=== PATIENT | female | born 1945 | race Caucasian/White ===

== ENCOUNTER → 2016-03-03 12:17 | Outpatient (CLI) | payer MEDICARE, BC ==
[2014-05-12 19:40] VITALS: BMI 29.1
[~2016-03-03 12:17] MED LIST: ABILIFY10 MG PO; ABILIFY2 MG PO; AMBIEN10 MG PO; AMITRIPTYLINE100 MG PO; CATAPRES0.1 MG PO; EFFEXOR100 MG PO; HYDROCODONE-APA1 TAB PO; MOBIC7.5 MG PO; NEURONTIN 300300 MG PO; PAMELOR 25 MG C25 MG PO; PAMELOR10 MG PO; PRILOSEC10 MG PO; PRISTIQ50 MG PO; SOMA350 MG PO; SYNTHROID50 MCG PO; TENORMIN50 MG PO; XANAX1 MG PO; ZESTORETIC 20/21 TAB PO; ZIAC 5-6.25 MG1 TAB PO
--- NOTE | 2016-03-06 08:24 | EEG ---
PATIENT:GEMA RODRIGUEZ DATE OF SERVICE: 03/03/16 MEDICAL RECORD: [id number] DATE OF : 47 LOCATION: [facility] ADMISSION DATE: 03/03/16 REFERRING PHYSICIAN: INTERPRETING PHYSICIAN: BRIANNA LAROSE MD DATE OF SERVICE: 03/03/2016 REFERRING PHYSICIAN: Dr. Jones as an outpatient. ELECTROENCEPHALOGRAM NUMBER: [id number] DATE OF EXAMINATION: 03/03/2016 at 1:00 p.m. TECHNICAL DATA: This electroencephalographic recording consists of approximately 20 minutes of data collection utilizing the international 10/20 system of electrode placement and both referential and non-referential montages. Sixteen channels of electrocerebral recording are accompanied by a 17th channel dedicated to the electrocardiographic rhythm and to 2 channels of electromyographic recording. Recording is performed in the awake and drowsy states utilizing activation by photic stimulation. ELECTROENCEPHALOGRAPHIC DATA: The awake state comprises approximately 80% of the recorded electrocerebral activity. Electromyographic artifact is prominent and rapid eye movements are seen. The posterior dominant background consists of a symmetric semi-arrhythmic waxing and waning alpha activity of 7-8 Hz, which is suppressed by eye opening. The drowsy state comprises the remaining portion of the recorded electrocerebral activity. Electromyographic artifact is diminished and rapid eye movements are not seen. The posterior dominant background is relatively suppressed, when seen tends more towards 7 Hz. No abnormal or focal slowing is identified. No epileptiform discharges are seen. Hyperventilation and photic stimulation induced no abnormal change in the recorded electrocerebral activity. INTERPRETATION: 1. Normal (awake and drowsy). This is a normal electroencephalographic recording. TRANSINT:[id number] Voice Confirmation ID: [id number] DOCUMENT ID: [id number] BRIANNA LAROSE MD at 0824 CC: [id number] DICTATION DATE: 03/05/16 0749 SENIOR IOS SOFTWARE ENGINEER: 03/05/16 0816 [facility] CLI 03/03/16 [id number] [place] [address]
== END | disposition home or self-care (01) ==
LOC: D.MRI 02-21 10:00 → D.CN 02-21 13:00 → D.LAB 02-21 14:00 → D.MRI 02-21 14:30 → D.CN 12:17
DX: E03.8 Other specified hypothyroidism (principal); F32.0 Major depressive disorder, single episode, mild; R55 Syncope and collapse

== ENCOUNTER 2016-05-03 00:34 | Emergency (ER) | payer MEDICARE, BC ==
[2014-05-12 19:40] VITALS: BMI 29.1
== END 2016-05-03 04:06 | disposition home or self-care (01) ==
LOC: D.ER 00:34
DX: L03.115 Cellulitis of right lower limb (principal); M10.9 Gout, unspecified; J44.9 Chronic obstructive pulmonary disease, unspecified; F32.9 Major depressive disorder, single episode, unspecified; I10 Essential (primary) hypertension; E03.9 Hypothyroidism, unspecified; G47.00 Insomnia, unspecified; G47.30 Sleep apnea, unspecified

== ENCOUNTER → 2016-09-15 08:30 | Outpatient (CLI) | payer MEDICARE, BC ==
[2014-05-12 19:40] VITALS: BMI 29.1
[2016-09-15 09:19] LABS: BASOPHILS 0.2 % (0-2); EOSINOPHILS 1.7 % (0-7); HEMOGLOBIN 12.3 g/dL (12-16); IMMATURE GRANULOCYTES 0.2 % (0-5); MCH 29.6 pg (26.0-34.0); MCHC 32.4 g/dL (31.0-37.0); MCV 91.3 fL (80.0-100.0); MEAN PLATELET VOLUME 9.9 fL (7.4-10.4); MONOCYTES 8.4 % (2-11); NEUTROPHILS 48.5 % (40-80); RBC 4.16 10x6/uL (4.00-5.40); WBC 8.7 10x3/uL (4.8-10.8)
[2016-09-15 09:20] LABS: PLATELET COUNT 212 10x3/uL (130-400)
[2016-09-15 09:28] LABS: APTT 27.4 SECONDS (22.8-39.4); INR 0.99 (0.85-1.17)
[2016-09-15 09:37] LABS: ALBUMIN 3.6 g/dL (3.4-5.0); ANION GAP 12.4 mmol/L (8-16); BILIRUBIN - DIRECT 0.08 mg/dL (0.00-0.30); BILIRUBIN - INDIRECT 0.23 mg/dL (0.00-1.00); BILIRUBIN - TOTAL 0.31 mg/dL (0.2-1.3); CALCIUM 8.9 mg/dL (8.5-10.1); CARBON DIOXIDE 28.5 mmol/L (21.0-32.0); CREATININE - SERUM 1.4 mg/dL (0.6-1.3); POTASSIUM - SERUM 3.9 mmol/L (3.5-5.1); PROTEIN - SERUM 8.3 g/dL (6.4-8.2)
[2016-09-15 09:38] LABS: LDL-HDL RATIO 4.3 ratio (1.5-3.5)
[2016-09-15 10:04] LABS: % SATURATION 18 % (15-55); IRON 74 ug/dl (35-150); TOTAL IRON BIND CAPACITY 400 ug/dl (260-445); UNSAT IRON BIND CAPACITY 326 ug/dl (150-375)
[2016-09-16 10:17] LABS: FOLATE (FOLIC ACID) - SERUM >20.0 ng/mL (>3.0)
[2016-09-16 11:15] LABS: ANA REFLEX - DIRECT Negative (Negative)
[2016-09-16 12:16] LABS: HAPTOGLOBIN 193 mg/dL (34-200)
== END | disposition home or self-care (01) ==
LOC: D.US 09-10 09:00 → D.LAB 09-10 10:15
PROVIDERS: Internal Medicine Gastroenterology
DX: K76.0 Fatty (change of) liver, not elsewhere classified (principal)

== ENCOUNTER → 2016-11-06 16:45 | Outpatient (CLI) | payer MEDICARE, BC ==
[2014-05-12 19:40] VITALS: BMI 29.1
== END | disposition home or self-care (01) ==
LOC: D.CT 16:30
DX: R19.00 Intra-abdominal and pelvic swelling, mass and lump, unspecified site (principal)

== ENCOUNTER 2017-05-04 10:09 | Emergency (ER) | payer MEDICARE, BC ==
[2014-05-12 19:40] VITALS: BMI 29.1
[~2017-05-04 10:09] MED LIST changes: -SYNTHROID50 MCG PO; +SYNTHROID75 MCG PO
[2017-05-04 12:10] LABS: BASOPHILS 0.2 % (0-2); EOSINOPHILS 0.9 % (0-7); HEMATOCRIT 38.3 % (36.0-48.0); HEMOGLOBIN 12.4 g/dL (12-16); IMMATURE GRANULOCYTES 0.1 % (0-5); LYMPHOCYTES 36.5 % (15-50); MCH 28.8 pg (26.0-34.0); MCHC 32.4 g/dL (31.0-37.0); MCV 89.1 fL (80.0-100.0); MEAN PLATELET VOLUME 9.8 fL (7.4-10.4); MONOCYTES 6.1 % (2-11); NEUTROPHILS 56.2 % (40-80); PLATELET COUNT 212 10x3/uL (130-400); RDW 14.5 % (11.5-14.5); WBC 9.8 10x3/uL (4.8-10.8)
[2017-05-04 12:39] LABS: ALBUMIN 3.4 g/dL (3.4-5.0); ANION GAP 12.5 mmol/L (8-16); BILIRUBIN - TOTAL 0.32 mg/dL (0.2-1.3); CALCIUM 8.8 mg/dL (8.5-10.1); CARBON DIOXIDE 29.7 mmol/L (21.0-32.0); CREATININE - SERUM 1.2 mg/dL (0.6-1.3); POTASSIUM - SERUM 4.2 mmol/L (3.5-5.1); PROTEIN - SERUM 7.8 g/dL (6.4-8.2)
== END 2017-05-04 13:58 | disposition home or self-care (01) ==
LOC: D.ER 10:09
PROVIDERS: Physician Assistant
DX: S00.11XA Contusion of right eyelid and periocular area, initial encounter (principal); S80.01XA Contusion of right knee, initial encounter; W19.XXXA Unspecified fall, initial encounter; Y93.89 Activity, other specified; Y92.019 Unspecified place in single-family (private) house as the place of occurrence of the external cause; R00.1 Bradycardia, unspecified; Z91.81 History of falling

== ENCOUNTER → 2017-05-24 10:18 | Outpatient (CLI) | payer MEDICARE, BC ==
[2014-05-12 19:40] VITALS: BMI 29.1
[~2017-05-24 10:18] MED LIST changes: +EFFEXOR75 MG PO; +NEXIUM20 MG PO; +NORVASC2.5 MG PO; +PEPCID40 MG PO; +TRAZODONE HCL50 MG PO; +ZANAFLEX4 MG PO; +ZYLOPRIM100 MG PO
[2017-05-24 11:40] LABS: ALBUMIN 3.6 g/dL (3.4-5.0); BILIRUBIN - DIRECT 0.09 mg/dL (0.00-0.30); BILIRUBIN - INDIRECT 0.31 mg/dL (0.00-1.00); BILIRUBIN - TOTAL 0.4 mg/dL (0.2-1.3); PROTEIN - SERUM 8.3 g/dL (6.4-8.2)
== END | disposition home or self-care (01) ==
LOC: D.LAB 05-04 10:15 → D.US 05-04 10:30
PROVIDERS: Internal Medicine Gastroenterology
DX: K76.0 Fatty (change of) liver, not elsewhere classified (principal)

== ENCOUNTER 2017-06-28 11:26 | Day surgery (SDC) | payer MEDICARE, BC ==
[~2017-06-28] VITALS: Ht 165.1 cm; Wt 77.3 kg
--- NOTE | ~2017-06-28 | OP ---
PATIENT NAME: GEMA RODRIGUEZ MEDICAL RECORD: [id number] :47 LOCATION:D.[facility] ADMISSION DATE: SURGEON: NILS UMANZOR DO DATE OF OPERATION: 06/28/2017 PROCEDURE: Colonoscopy with polypectomy and biopsies. INDICATIONS FOR PROCEDURE: Change in bowel habits, steatosis of the liver. SCOPE: Olympus video pediatric colonoscope. MEDICATIONS: Propofol 460 mg IV per anesthesia. WITHDRAWAL TIME: 16 minutes. ESTIMATED BLOOD LOSS: Minimal. COMPLICATIONS: None. FINDINGS: Informed consent was given. The patient was made comfortable with the above medication. After reaching an adequate level of sedation by slow IV push, the patient was placed on her left side. A digital rectal examination was performed and was normal. The endoscope was then advanced under direct visualization through the rectum to the cecum, confirmed by the presence of the appendiceal orifice and ileocecal valve. The endoscope was slowly withdrawn. The mucosa was carefully examined. The prep quality was good. There were numerous polyps visualized on today's examination. Two of these were located in the ascending colon. They were both benign appearing and sessile. They measured approximately 2-4 mm in diameter. In the transverse colon, there were 2 polyps, which were benign-appearing and sessile. They ranged in size from 4-6 mm in diameter. They were both removed using hot snare in 1 piece and completely retrieved. In the descending colon, there were 3 separate polyps, which were benign-appearing and sessile. They measured approximately 4-6 mm in diameter and were removed using a hot snare in 1 piece and completely retrieved. During this procedure, random biopsies were taken to submit for histopathology to rule out microscopic colitis. Stool was also collected to submit for an xTAG study to rule out infectious disease, which could contribute to her diarrhea. Retroflexion was performed in the rectum with a normal-appearing rectal wall. The endoscope was then withdrawn from the patient. The patient tolerated the procedure well and there were no complications. IMPRESSION: 1. Multiple polyps as described above, removed using a combination of hot forceps and hot snare. 2. Random biopsies and stool collected. Otherwise, normal colonoscopy. PLAN AND RECOMMENDATIONS: 1. Discharge home when recovery parameters are met. 2. Followup biopsy specimen results. 3. Continue current diet. 4. Continue current medications. 5. Trial of dicyclomine 20 mg b.i.d. p.r.n. abdominal cramping or loose stools. 6. If dicyclomine does not help, we will give a trial of cholestyramine 4 grams b.i.d. to bulk the stools. 7. Recall in 2 years based on number and types of polyps removed on today's OPERATIVE REPORT [id number] GEMA RODRIGUEZ examination. TRANSINT:[id number] Voice Confirmation ID: [id number] DOCUMENT ID: [id number] NILS UMANZOR DO at 1558 CC: [id number] DICTATION DATE: 06/28/17 1428 ATMOSPHERIC SCIENCES PROFESSOR: 06/28/17 1627 [facility] 06/28/17 [facility] [address] [place] [address]
[~2017-06-28 11:26] MED LIST changes: -EFFEXOR75 MG PO; -NEXIUM20 MG PO; -NORVASC2.5 MG PO; -PEPCID40 MG PO; -TRAZODONE HCL50 MG PO; -ZANAFLEX4 MG PO; -ZYLOPRIM100 MG PO
[2017-06-28] MEDS ORDERED: NEXIUM20 MG PO (12:26)
[2017-06-28] MEDS ORDERED: NORVASC2.5 MG PO (12:26)
[2017-06-28] MEDS ORDERED: TRAZODONE HCL50 MG PO (12:26)
[2017-06-28] MEDS ORDERED: ZANAFLEX4 MG PO (12:27)
[2017-06-28] MEDS ORDERED: ZYLOPRIM100 MG PO (12:27)
[2017-06-28] MEDS ORDERED: EFFEXOR75 MG PO (12:28)
[2017-06-28] MEDS ORDERED: PEPCID40 MG PO (12:29)
[2017-06-28 12:34] VITALS: BP 173/75; Ht 165.1 cm; Wt 77.3 kg
[2017-06-28 12:56] LABS: BASOPHILS 0.1 % (0-2); EOSINOPHILS 1.1 % (0-7); HEMATOCRIT 36.1 % (36.0-48.0); IMMATURE GRANULOCYTES 0.1 % (0-5); LYMPHOCYTES 37.4 % (15-50); MCH 29.6 pg (26.0-34.0); MCHC 33.2 g/dL (31.0-37.0); MCV 89.1 fL (80.0-100.0); MEAN PLATELET VOLUME 9.6 fL (7.4-10.4); MONOCYTES 5.4 % (2-11); NEUTROPHILS 55.9 % (40-80); PLATELET COUNT 229 10x3/uL (130-400); RBC 4.05 10x6/uL (4.00-5.40); RDW 14.1 % (11.5-14.5); WBC 7.6 10x3/uL (4.8-10.8)
[2017-06-28 13:40] LABS: ANION GAP 16.6 mmol/L (8-16); CALCIUM 9.6 mg/dL (8.5-10.1); CARBON DIOXIDE 26.5 mmol/L (21.0-32.0); CREATININE - SERUM 1.1 mg/dL (0.6-1.3); POTASSIUM - SERUM 4.1 mmol/L (3.5-5.1)
== END 2017-06-28 15:38 | disposition home or self-care (01) ==
LOC: D.OPS 11:26
PROVIDERS: Anesthesiology
DX: D12.2 Benign neoplasm of ascending colon (principal); D12.4 Benign neoplasm of descending colon; D12.3 Benign neoplasm of transverse colon; K76.0 Fatty (change of) liver, not elsewhere classified; Z01.812 Encounter for preprocedural laboratory examination

== ENCOUNTER → 2017-12-07 18:26 | Outpatient (CLI) | payer MEDICARE, BC ==
[2017-06-28 12:34] VITALS: BMI 28.3
[~2017-12-07 18:26] MED LIST changes: +EFFEXOR75 MG PO; +NEXIUM20 MG PO; +NORVASC2.5 MG PO; +PEPCID40 MG PO; +TRAZODONE HCL50 MG PO; +ZANAFLEX4 MG PO; +ZYLOPRIM100 MG PO
== END | disposition home or self-care (01) ==
LOC: D.MAMMO 15:45
DX: Z12.31 Encounter for screening mammogram for malignant neoplasm of breast (principal)

== ENCOUNTER → 2018-10-06 09:40 | Outpatient (CLI) | payer MEDICARE, BC ==
[2017-06-28 12:34] VITALS: BMI 28.3
--- NOTE | 2018-10-11 14:28 | EC ---
PATIENT:GEMA RODRIGUEZ DATE OF SERVICE: 10/06/18 SEX: F MEDICAL RECORD: [id number] DATE OF : 47 [facility] AGE OF PATIENT: 73 ADMISSION DATE: 10/06/18 REFERRING PHYSICIAN: INTERPRETING PHYSICIAN: THONG WHITE MD ECHOCARDIOGRAM REPORT ECHO CHARGES 4 ECHO COMPLETE Date: 10/06/18 CLINICAL DIAGNOSIS: HTN ECHOCARDIOGRAPHIC MEASUREMENTS (adult normal given) AC root (d.<3.7cm) 3.1 cm LV Septum d (<1.2 cm> 1.2 cm Valve Excursion 1.5 cm LV Septum (systole) 1.4 cm Left Atria (s.<4.0cm> 3.5 cm LVPW d(<1.2cm) 1.3 cm RV (d.<2.3cm) 2.3 cm LVPW (sytole) 1.6 cm LV diastole(<5.6CM) 4.6 cm MV E-F(>70mm/sec) cm LV systole 3.5 cm LVOT Diameter 1.5 cm MV exc.(>10mm) 1.7 cm Est.ejection fraction (50-75%) % DOPPLER: LVIT cm/sec A 88.0 cm/sec E 54.0 cm/sec LA cm/sec RVSP 16 mmHg LVOT 103 cm/sec AOP1/2T m/s Asc. Ao 149 cm/sec RVOT 100 cm/sec RA cm/sec PA 110 cm/sec AV Gradient Peak 8.93 mmHg AV Mean 5.14 mmHg AV Area 1.4 cm MV Gradient Peak 3.30 mmHg MV Mean 1.19 mmHg MV Area cm COMMENTS: Tire Installer: 2 SETH MCKEON White Sugar Boiler: 3 Dr. Parnell TAPE# PACS Pericardial Effusion N DATE OF SERVICE: Borderline LVH. LV internal dimension is normal. Wall motion is normal. EF is greater than or equal to 55%. Aortic valve is tricuspid. No evidence of stenosis by Doppler interrogation. Left atrium is normal. Mitral valve shows no prolapse. Trace MR. Right-sided chamber is grossly normal. Trace TR. TRANSINT:[id number] Voice Confirmation ID: [id number] DOCUMENT ID: [id number] ECHOCARDIOGRAM REPORT [id number] GRACIEGEMA DOBBS THONG SCHRADER MD at 1428 CC: [id number] DICTATION DATE: 10/06/18 1619 ORTHOPEDIC SPECIALIST: 10/06/18 2135 [facility] CLI 10/06/18 [place] [id number] [facility] [place] [address]
== END | disposition home or self-care (01) ==
LOC: D.HCCARDIO 09:40
PROVIDERS: ATTEND Internal Medicine Interventional Cardiology
DX: I10 Essential (primary) hypertension (principal)

== ENCOUNTER → 2019-01-02 07:57 | Outpatient (CLI) | payer MEDICARE, BC ==
[2017-06-28 12:34] VITALS: BMI 28.3
== END | disposition home or self-care (01) ==
LOC: D.NM 07:57
PROVIDERS: ATTEND Nurse Practitioner Family
DX: Z96.641 Presence of right artificial hip joint (principal)

== ENCOUNTER → 2019-02-09 14:16 | Outpatient (CLI) | payer MEDICARE, BC ==
[2017-06-28 12:34] VITALS: BMI 28.3
== END | disposition home or self-care (01) ==
LOC: D.MRI 14:16
PROVIDERS: ATTEND Nurse Practitioner Family
DX: M43.16 Spondylolisthesis, lumbar region (principal)

== ENCOUNTER → 2019-02-24 09:18 | Outpatient (CLI) | payer MEDICARE, BC ==
[2017-06-28 12:34] VITALS: BMI 28.3
--- NOTE | ~2019-02-24 | HEMODYNAMI ---
PATIENT:GEMA RODRIGUEZ MEDICAL RECORD: [id number] : 47 [id number] AD[facility]ION DATE: 02/24/19 Generatedon:02/24/201910:22 Patient name: GEMA RODRIGUEZ Patient #: [id number] SSN: : 1945 Date of study: 02/24/2019 Page: Of Hemodynamic Procedure Report Patient Data Patient Demographics Procedure consent was obtained First Name: GEMA Gender: Female Last Name: JENNIFER : 1945 [facility] Initial: GRACE Age: 74 year(s) Patient #: [id number] Race: Unknown Additional ID: [id number] Contact details [address]: [address] [place] [address] [address]IVE [place]: [place] [facility] [place] [place]: [address] Past Medical History Allergies: No known allergies Admission Admission Data Admission Date: 02/24/2019 Admission Time: 9:18 Procedure Procedure Types Cath Procedure Peripheral Cath Diagnostic Procedure Miscellaneous Epidural Steroid Injection Procedure Description Procedure Date Procedure Date: 02/24/2019 Procedure Start Time: 10:08 Procedure Staff Name Function Neftali Mcclure MD Performing Physician MARY CARMEN CAMACHO RT Monitor Procedure Data Cath Procedure Fluoroscopy Diagnostic fluoroscopy Total fluoroscopy Time: 0.4 time: 0.4 min min Diagnostic fluoroscopy Total fluoroscopy dose: 4 dose: 4 mGy mGy Hemodynamics Rest Pre Cath Intra NCS Post Cath Procedure Log Time Note 9:54:56 MARY CARMEN CAMACHO RT (R) sent for patient. Start room use. 9:54:57 Time tracking: Regular hours (M-F 7:00 - 5:00) 9:55:04 Patient received from Other to IR Alert and oriented. Tansferred to table in Prone position. 9:55:06 Signed procedure consent form obtained from patient. 9:55:07 Warm blankets applied, and patrick hugger turned on for patient comfort. 9:55:08 Correct patient and procedure confirmed by team. 9:55:09 - 9:55:18 Patient allergic to No known allergies 9:55:20 Is patient on blood thinner?No 9:55:22 - 9:55:32 Lumbar area was prepped with betadine and draped in sterile fashion 10:03:20 Physician arrived 10:04:37 --------ALL STOP TIME OUT------ 10:05:23 Procedure started. 10:05:23 Full Disclosure recording started 10:08:09 Local anesthetic to Lumbar area with Lidocaine 1% by Neftali Mcclure MD.INITIAL ACCESS ONLY 10:09:58 KIT EPIDURAL CATHETERIZATION opened to sterile field. 10:14:22 Procedure ended.(Physican Out) 10:20:33 Fluoroscopy time 00.40 minutes. 10:20:36 Fluoroscopy dose: 4 mGy 10:20:36 Flurop Dose total: 4 10:20:39 Sharps counted by scrub and verified by R.N. 10:20:52 Post Lumbar area:stable, clean and dry 10:20:59 Procedure and supply charges have been captured, reviewed, submitted an d are correct. 10:21:45 End room use (Document Last) Device Usage Item Name Manufacture Quantity Catalog Hospital Part Current Minima l Lot# / Number Charge Number Stock Stock Serial# Code KIT EPIDURAL Teleflex 1 [id number] CATHETERIZATION Signature Audit [place] Stage Time Signature Unsigned Intra-Procedure 02/24/2019 MARY CARMEN CAMACHO RT 10:22:00 AM ([facility] [address] [place] [address]
== END | disposition home or self-care (01) ==
LOC: D.RAD 09:18
PROVIDERS: ATTEND Nurse Practitioner Family
DX: M54.16 Radiculopathy, lumbar region (principal)

== ENCOUNTER → 2020-06-24 | Emergency (ER) | payer MEDICARE, BC ==
[~2020-06-24] VITALS: Ht 165.1 cm; Wt 81.4 kg
[~2020-06-24] MED LIST changes: +ALBUTEROL SULF8.5 GM INH; +COLCRYS0.6 MG PO; +COZAAR50 MG PO; +GLUCOPHAGE1000 MG PO; +INDOCIN25 MG PO; +LEVAQUIN750 MG PO; +LEVOFLOXACIN500 MG PO; +MUCINEX600 MG PO; +OMNICEF300 MG PO; +SINGULAIR10 MG PO; +TYLENOL W/CODEI1 TAB PO; +ZOFRAN ODT4 MG/UDTAB PO
[2020-06-24 21:39] VITALS: Ht 165.1 cm; Wt 81.4 kg
[2020-06-24 22:35] LABS: BASOPHILS 0.2 % (0-2); EOSINOPHILS 1.3 % (0-7); HEMATOCRIT 32.5 % (36.0-48.0); HEMOGLOBIN 10.5 g/dL (12-16); LYMPHOCYTES 34.9 % (15-50); MCH 27.4 pg (26.0-34.0); MCHC 32.3 g/dL (31.0-37.0); MCV 84.7 fL (80.0-100.0); MEAN PLATELET VOLUME 7.7 fL (7.4-10.4); MONOCYTES 9.9 % (2-11); NEUTROPHILS 53.7 % (40-80); PLATELET COUNT 266 10x3/uL (130-400); RBC 3.84 10x6/uL (4.00-5.40); RDW 15.9 % (11.5-14.5); WBC 7.4 10x3/uL (4.8-10.8)
[2020-06-24 22:43] LABS: APTT 30.7 SECONDS (22.8-39.4); INR 1.1 (0.85-1.17); PROTIME 13.2 SECONDS (11.6-15.0)
[2020-06-24 22:44] LABS: CALC OSMOLALITY 274 mosm/kg (275-300); CALCIUM 8.3 mg/dL (8.5-10.1); CHLORIDE - SERUM 99 mmol/L (98-107); CREATININE - SERUM 1.3 mg/dL (0.6-1.3); GLUCOSE 116 mg/dL (74-106); POTASSIUM - SERUM 4.2 mmol/L (3.5-5.1); SODIUM 136 mmol/L (136-145); UREA NITROGEN 18 mg/dL (7-18); eGFR NON AFRICAN AMERICAN 42 mL/min (90-120)
[2020-06-24 23:01] LABS: ALBUMIN 3.7 g/dL (3.4-5.0); ALKALINE PHOSPHATASE 120 U/L (30-120); ALT (SGPT) 41 U/L (10-68); BILIRUBIN - TOTAL 0.18 mg/dL (0.2-1.3); CKMB 1.2 U/L (0.0-3.6); CREATINE KINASE 69 UL (21-215); MAGNESIUM - SERUM 1.3 mg/dL (1.8-2.4)
[2020-06-24 23:10] LABS: TROPONIN-I < 0.017 ng/mL (0.000-0.060)
[2020-06-24 23:43] VITALS: BP 124/61
[2020-06-25 00:27] LABS: BILIRUBIN NEGATIVE (NEGATIVE); KETONE NEGATIVE (NEGATIVE); NITRITE NEGATIVE (NEGATIVE); UROBILINOGEN NORMAL mg/dL (< 2)
[2020-06-25 00:28] LABS: BACTERIA FEW HPF (NONE SEEN); SQUAMOUS EPITHELIAL 0-5 HPF (0-4); WHITE CELLS - URINE 0-5 HPF (0-4)
== END ==
LOC: D.ER 21:30
PROVIDERS: Family Medicine
DX: N39.0 Urinary tract infection, site not specified (principal); E11.9 Type 2 diabetes mellitus without complications; I11.0 Hypertensive heart disease with heart failure; I50.9 Heart failure, unspecified; Z79.84 Long term (current) use of oral hypoglycemic drugs; R53.1 Weakness; R11.0 Nausea; R07.81 Pleurodynia